=== PATIENT | female | born 1985 | race African-American/Black ===

== ENCOUNTER 2019-01-25 14:55 | Emergency (ER) | payer MEDICAID ==
[~2019-01-25] VITALS: Ht 157.5 cm; Wt 127.6 kg
[2019-01-25 15:02] VITALS: BP 129/90
[2019-01-25] MEDS ORDERED: HYDROcodone/APAP 5/325 TABLET PO ONE (15:30)
[2019-01-25] MEDS ORDERED: HYDROcodone/APAP 5/325 TABLET ONE (15:34)
--- NOTE | 2019-01-25 15:42 | NUR ---
PT HERE FOR RIGHT SIDED DENTAL PAIN. PT DENIES ANY TRUAMA.
== END 2019-01-25 15:43 ==
LOC: ED 15:29
DX: K08.89 Other specified disorders of teeth and supporting structures (principal); F17.200 Nicotine dependence, unspecified, uncomplicated
CPT/HCPCS: 99283

== ENCOUNTER 2019-03-16 14:47 | Emergency (ER) | payer MEDICAID ==
[~2019-03-16] VITALS: Ht 160 cm; Wt 123.0 kg
[2019-03-16 15:02] VITALS: BP 138/92
--- NOTE | 2019-03-16 15:15 | NUR ---
PT AMBUALTORY TO RME FROM TRIAGE WITH STEADY GAIT. NAD NOTED. RESP REGULAR AND UNLABORED. LOLIS DENNEY AT BEDSIDE FOR EVALUATION. CALL LIGHT IN REACH. FALL PRECUATIONS IN PLACE. SIDE RAILS UPX2.
[2019-03-16] MEDS ORDERED: DEXAMETHASONE 4 MG TABLET PO ONE (15:30)
[2019-03-16] MEDS ORDERED: ACETAMINOPHEN 325 MG TABLET PO ONE (15:30)
--- NOTE | 2019-03-16 15:38 | NUR ---
UNABLE TO CHART MEDICATION IN EMAR. 5 RIGHTS VERIFIED PRIOR TO ADMIN WITH LOLIS DENNEY AND ORDER IN ORDER LIST, PT MEDICATED AT THIS TIME NOTED PER ORDER WITH DECADRON 10MG PO ONCE AND TYLENOL 650 MG PO ONCE.
[2019-03-16] MEDS ORDERED: ACETAMINOPHEN 325 MG TABLET ONE (15:41)
[2019-03-16] MEDS ORDERED: DEXAMETHASONE 4 MG TABLET ONE (15:41)
[2019-03-16 16:01] LABS: RAPID INFLUENZA A Negative (Negative); RAPID INFLUENZA B Negative (Negative)
--- NOTE | 2019-03-16 16:25 | NUR ---
REPORT AND CARE TO YANDY FONG AT THIS TIME. PT TO BE DISCHARGED PER PA ORDER.
== END 2019-03-16 16:35 | disposition home or self-care (01) ==
LOC: ED 16:29
DX: J02.0 Streptococcal pharyngitis (principal)
CPT/HCPCS: 87400; 87880; 99283

== ENCOUNTER 2019-10-09 10:18 | Emergency (ER) | payer MEDICAID, OTHER ==
[~2019-10-09] VITALS: Ht 157.5 cm; Wt 132.1 kg
[2019-10-09 10:28] VITALS: BP 152/94
--- NOTE | 2019-10-09 10:32 | NUR ---
PATIENT HAS HAD A COUGH, SORE THROAT, BODY ACHES, FEVERS AND SOB SINCE LAST WEDNESDAY - 6 DAYS.
--- NOTE | 2019-10-09 12:40 | NUR ---
BREAK RN: Patient/Caregiver given discharge instructions and they have confirmed that they understand the instructions. Patient ambulatory with steady gait. PT LEFT WITH ALL PERSONAL BELONGINGS.
== END 2019-10-09 12:41 | disposition home or self-care (01) ==
LOC: ED 10:56
DX: J18.9 Pneumonia, unspecified organism (principal); F17.200 Nicotine dependence, unspecified, uncomplicated
CPT/HCPCS: 71045; 87081; 87880; 93005; 99285

== ENCOUNTER 2021-01-09 12:02 | Emergency (ER) | payer MEDICAID ==
[~2021-01-09] VITALS: Ht 157.5 cm; Wt 134.4 kg
--- NOTE | 2021-01-09 13:54 | NUR ---
SCREEN AND CYCLONE REPAIRER: PT TO ROOM FROM CORIE CRUZ
--- NOTE | 2021-01-09 14:11 | NUR ---
PT AMBULATORY TO ROOM 23 W/ C/O CP, SOB AND COUGH X 2 WEEKS. PT STATES SHE HAD PNA BEFORE AND IT FEELS SIMILAR TO WHEN SHE HAD PNA LAST. PT RESTING ON GURNEY. NADN. MONITORS APPLIED. VSS. WARM BLANKET PROVIDED. CALL LIGHT IN REACH. ERP DR. ARRINGTON AT BEDSIDE FOR EVAL.
[2021-01-09] MEDS ORDERED: ALBUTEROL/IPRATROPIUM 2.5MG/0.5MG, 3 ML ONE (14:21)
[2021-01-09 14:30] LABS: BASOPHILS % (AUTO) 1 % (0-1); EOSINOPHILS % (AUTO) 1 % (1-7); LYMPHOCYTES % (AUTO) 43 % (22-44); MEAN CORPUSCULAR HEMOGLOBIN 28.4 pg (27.0-34.8); MEAN CORPUSCULAR HGB CONC 33.5 g/dL (32.4-35.8); MONOCYTES % (AUTO) 5 % (2-9); NEUTROPHILS % (AUTO) 50 % (42-75); PLATELET COUNT 296 x10^3/uL (130-400); RED BLOOD COUNT 4.59 x10^6/uL (3.82-5.3); RED CELL DISTRIBUTION WIDTH 15.2 % (9.6-15.2)
[2021-01-09] MEDS ORDERED: ALBUTEROL/IPRATROPIUM 2.5MG/0.5MG, 3 ML NPPB ONE (14:30)
[2021-01-09 14:42] LABS: ALBUMIN 3.2 g/dL (3.4-5.0); CALCIUM 8.6 mg/dL (8.5-10.1); CHLORIDE 111 mmol/L (98-107)
[2021-01-09 14:46] LABS: ALANINE AMINOTRANSFERASE 18 U/L (12-78); ALKALINE PHOSPHATASE 87 U/L (45-117); ANION GAP 5 mmol/L (5-15); BILIRUBIN,TOTAL 0.3 mg/dL (0.2-1.0); CREATININE 0.67 mg/dL (0.55-1.02); TOTAL PROTEIN 7.6 g/dL (6.4-8.2)
--- NOTE | 2021-01-09 14:55 | NUR ---
PT CHART REVIEWED AND PLACED FOR RECHECK.
[2021-01-09 15:50] VITALS: BP 116/68
--- NOTE | 2021-01-09 15:50 | NUR ---
BREAK RN: PT COMPLETED NPPB TX, SITTING UPRIGHT ON [employer] TEXTING ON PHONE, RESPONDS APPROP TO STAFF, NAD, NO NEEDS AT THIS TIME, CALL LIGHT WITHIN REACH.
--- NOTE | 2021-01-09 16:12 | NUR ---
Patient given discharge instructions and Rx, they have confirmed that they understand the instructions. Patient ambulatory with steady gait. NAD, all questions answered appropriately, denies additional needs at this time. No personal belongings left in room after discharge.
== END 2021-01-09 16:13 | disposition home or self-care (01) ==
LOC: ED 16:00
DX: J45.901 Unspecified asthma with (acute) exacerbation (principal); Z20.822 Contact with and (suspected) exposure to COVID-19; R07.9 Chest pain, unspecified; R94.31 Abnormal electrocardiogram [ECG] [EKG]; F17.200 Nicotine dependence, unspecified, uncomplicated
CPT/HCPCS: 36415; 71045; 80053; 85025; 93005; 94640; 99285; J7512; U0003; U0005